=== PATIENT | male | born 1950 | race African-American/Black ===

== ENCOUNTER 2017-10-29 00:27 | Emergency (ER) | payer OTHER, MEDICAID ==
[~2017-10-29] VITALS: Ht 175.3 cm; Wt 75.0 kg
[2017-10-29] MEDS ORDERED: MORPHINE SULFATE 4 MG/ML CPJ (NOT FOR IM USE) IV ONE (01:15)
[2017-10-29] MEDS ORDERED: PROPOFOL 200MG/20ML VIAL IV ONE (01:45)
[2017-10-29 06:45] VITALS: BP 129/71
== END 2017-10-29 07:31 | disposition home or self-care (01) ==
LOC: ER 00:27
DX: S43.015A Anterior dislocation of left humerus, initial encounter (principal); Y04.8XXA Assault by other bodily force, initial encounter; Y93.89 Activity, other specified; Y92.89 Other specified places as the place of occurrence of the external cause; Z88.0 Allergy status to penicillin; F17.210 Nicotine dependence, cigarettes, uncomplicated
CPT/HCPCS: 23650; 73020; 73030; 96374; 99152; 99153; 99285; J2270; A4565; J2704

== ENCOUNTER 2019-07-17 08:47 | Emergency (ER) | payer MEDICARE, MEDICAID ==
[~2019-07-17] VITALS: Ht 170.2 cm; Wt 69.0 kg
[2019-07-17] MEDS ORDERED: MORPHINE SULFATE 4 MG/ML CPJ (NOT FOR IM USE) IV STA (09:29)
[2019-07-17] MEDS ORDERED: ONDANSETRON HCL 4MG/2ML INJ IV STA (09:29)
[2019-07-17 11:08] LABS: HEMOGLOBIN. 10.8 g/dL (14.0-18.0); MEAN CORPUSCULAR HEMOGLOBIN 31.2 pg (28.0-32.0); MEAN CORPUSCULAR VOLUME 95.3 fL (80.0-94.0); MEAN PLATELET VOLUME 7.7 fl (7.4-10.4); PLATELET 267 x1000/uL (130-400); RED BLOOD CELL COUNT 3.46 mill/uL (4.7-6.1); RED CELL DISTRIBUTION WIDTH 14.5 % (11.6-14.6)
[2019-07-17 11:17] LABS: CHLORIDE 105 mEq/L (98-107)
[2019-07-17 11:47] LABS: PLATELET ESTIMATE NORMAL
[2019-07-17 21:00] VITALS: BP 125/67
== END 2019-07-17 21:00 | disposition home or self-care (01) ==
LOC: ER 08:47
DX: R06.02 Shortness of breath (principal); M79.604 Pain in right leg; R03.0 Elevated blood-pressure reading, without diagnosis of hypertension
CPT/HCPCS: 36415; 71046; 80053; 85025; 93005; 96374; 96375; 99284; J2270; J2405